=== PATIENT | female | born 1975 | race African-American/Black ===

== ENCOUNTER 2017-10-07 18:41 | Emergency (ER) | payer OTHER ==
[~2017-10-07] VITALS: Ht 162.6 cm; Wt 80.0 kg
[~2017-10-07 18:41] MED LIST: DICL50TA9
[2017-10-07 18:47] VITALS: BP 118/64
[2017-10-07] MEDS ORDERED: SILVER SULFADIAZINE 1% CREAM 25GM TOP ONE (21:00)
== END 2017-10-07 21:23 | disposition home or self-care (01) ==
LOC: ER 19:27
DX: T23.022A Burn of unspecified degree of single left finger (nail) except thumb, initial encounter (principal); W86.8XXA Exposure to other electric current, initial encounter; Y93.89 Activity, other specified; Y92.89 Other specified places as the place of occurrence of the external cause; Y99.8 Other external cause status
CPT/HCPCS: 99282; Z7610